=== PATIENT | male | born 1985 | race African-American/Black ===

== ENCOUNTER 2017-05-29 06:00 | Inpatient (IN) | payer OTHER ==
[~2017-05-29] VITALS: Ht 193 cm; Wt 117.9 kg
--- NOTE | ~2017-05-29 | CO ---
Unit #: [id number] #: [id number] Patient: NICOLASA MONTGOMERY [id number] [place] [address] [id number] MR#: [id number] NAME: NICOLASA MONTGOMERY ROOM: [facility] Age: 32 Sex: M Admission Date: 05/29/2017 : 1985 Attending Physician: Darnell Mccullough M.D. Primary Care Physician: Primary Care Physician No Consultation Date: 05/29/2017 CONSULTATION REPORT Medical consult was requested by Dr. Mccullough and completed on 05/29/2017. HISTORY OF PRESENT ILLNESS Nicolasa reports that about 6 days ago he started noticing itching on his entire body, initially starting on his hands and arms. He did go to an ER where they told him this is possibly rash caused by an STD and aided multiple tests; however, he does not have those results. The itching does seem to be getting worse and does seem to be spreading. He has no other complaints. PHYSICAL EXAMINATION CARDIAC: Regular rate and rhythm. No murmurs, gallops, or rubs. RESPIRATORY: Clear to auscultation bilaterally. SKIN: Red raised rash between fingers on bilateral hands extending up to forearms and abdomen. ASSESSMENT AND PLAN Scabies. We will begin Elimite cream today and leave on overnight and wash off in the morning. We will also begin Zyrtec and Zantac. Staff was recommended to take appropriate precautions regarding room assignments. Dictated by..Jian Genao/becki TD: 05/29/2017 18:05 JOB #: [id number] CONSULTATION REPORT Page 1 of 1 X MEREDITH CARL APRN CONSULTATION REPORT
--- NOTE | ~2017-05-29 | PN ---
Unit #: [id number] #: [id number] Patient: NICOLASA MONTGOMERY [id number] [facility] [address] [place] [address] [id number] MR#: [id number] NAME: NICOLASA MONTGOMERY ROOM: [facility] Age: 32 Sex: M Admission Date: 05/29/2017 : 1985 Attending Physician: Darnell Mccullough M.D. Admitting Physician: Darnell Mccullough M.D. Primary Care Physician: Primary Care Physician Britni MORAN NOTES DATE OF SERVICE 05/30/2017 DISCUSSION Nicolasa is a 32-year-old male seen on 05/30/2017. Patient interviewed, chart reviewed. Obtained information from nursing staff. Patient compliant and cooperative. Mood sad, dysphoric, flat affect, guarded. Patient was able to sleep good. No aggression or self-harm. Complete review of systems unremarkable. MENTAL STATUS EXAMINATION General appearance, patient dressed casually. Attention span and concentration fair. Oriented to place and person. Mood and affect labile. Speech monotone. Thought process concrete. Patient denied any thoughts of harming self or others or any psychotic symptom. Recent and remote memory poor. Insight and judgement poor. DIAGNOSES Major depressive disorder recurrent severe. ASSESSMENT/PLAN Advise to continue with current medication and therapeutic protocol. If needed consider further adjustment of medication. Dictated by... Marcella Grewal/nasir TD: 05/31/2017 22:01 JOB #: [id number] SABRINA MORAN NOTES Page 1 of 1 X Darnell Mccullough MD X PROGRESS NOTE
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
--- NOTE | ~2017-05-29 | HP ---
Unit #: [id number] #: [id number] Patient: NICOLASA MONTGOMERY [id number] [facility] [address] [place] [address] [id number] I MR#: [id number] NAME: NICOLASA MONTGOMERY ROOM: [facility] Age: 32 Sex: M Admission Date: 05/29/2017 : 1985 Attending Physician: Darnell Mccullough M.D. Admitting Physician: Darnell Mccullough M.D. Primary Care Physician: Primary Care Physician No HISTORY AND PHYSICAL HISTORY OF PRESENT ILLNESS Nicolasa is a 32-year-old male admitted on 05/29/2017 to [facility] for attempted suicide by overdosing on ibuprofen. PAST MEDICAL HISTORY Meningitis. PAST SURGICAL HISTORY A feeding tube when he was 5 years old. ALLERGIES Penicillin. SOCIAL HISTORY Smokes less than 1 pack of cigarettes daily. Denies alcohol use. Does report occasional marijuana use. He is currently single and living with his partner. FAMILY HISTORY Noncontributory. REVIEW OF SYSTEMS CONSTITUTIONAL: No fever or chills. HEENT: Denies any sore throat, ear pain or runny nose. CARDIOVASCULAR: Denies chest pain, irregular heart rhythm or palpitations. CHEST: Denies shortness of breath or cough. No hemoptysis. GASTROINTESTINAL: Denies nausea, vomiting, diarrhea or chronic constipation. ENDOCRINE: Denies history of increased thirst or urination. No recent significant weight loss or gain. GENITOURINARY: Denies dysuria, frequency, or hematuria. SKIN: Denies any rashes. HEMATOLOGIC: Denies history of increased bleeding or bruising. MUSCULOSKELETAL: Denies any hot, swollen joints. No generalized muscle pain. NEUROLOGIC: Denies problems with vision or speech. No frequent, severe headaches. No numbness, tingling or weakness in any extremities. Denies loss of bladder or bowel control. CURRENT MEDICATIONS None. PHYSICAL EXAMINATION Unit #: [id number] #: [id number] Patient: NICOLASA MONTGOMERY GENERAL: Alert, oriented, in no acute distress. VITAL SIGNS: Blood pressure 130/89, heart rate 90, temperature 97.8. HEIGHT: 6 feet 4. WEIGHT: 260 pounds. SKIN: Warm and dry without rash or lesion. HEENT: Normocephalic. TMs not viewed. Oral and nasal passages clear. Conjunctivae clear. PERRLA. EOMs intact. NECK: Supple without lymphadenopathy or thyromegaly. HEART: Regular rate and rhythm without murmur. LUNGS: Clear. ABDOMEN: Soft, nontender, without masses or hepatosplenomegaly. : Not done. EXTREMITIES: No evidence of cyanosis, clubbing or edema. Moves all without focal deficit. NEUROLOGICAL: Grossly within normal limits. Cranial Nerves: II: Visual decker are intact. III, IV AND : Extraocular movements are intact. Pupils are equal, round and reactive to light. V: Facial sensation is grossly normal. VII: Facial movements and expression are normal. VIII: Auditory acuity grossly intact. IX, X: Uvula is midline. Phonation is normal. XI: Patient shrugs shoulders and turns head normally. XII: Tongue protrudes in the midline. Sensory and Motor Function: Sensory and motor sensation is grossly normal. Motor: moves all extremities well. Coordination: Gait is normal. Deep Tendon Reflexes: Intact. IMPRESSION 1. Psychiatric admission. 2. History of meningitis. RECOMMENDATIONS PSYCHIATRIC: Per psychiatrist. MEDICAL: No contraindication to participate in facility's activities. MEDICAL PROGNOSIS Good. MEDICAL CONDITION Stable. Dictated by... Jian Almanza/aubree TD: 05/31/2017 16:01 JOB #: [id number] Unit #: [id number] #: [id number] Patient: ULISESNICOLASA HISTORY AND PHYSICAL Page 1 of 1 X MEREDITH CARL APRN X HISTORY AND PHYSICAL
--- NOTE | ~2017-05-29 | DS ---
Unit #: [id number] #: [id number] Patient: NICOLASA MONTGOMERY [id number] [facility] [address] [place] [address] [id number] MR#: [id number] NAME: NICOLASA MONTGOMERY ROOM: [facility] Age: 32 Sex: M Admission Date: 05/29/2017 : 1985 Discharge Date: 05/31/2017 Attending Physician: Darnell Mccullough M.D. Primary Care Physician: Primary Care Physician No DISCHARGE SUMMARY REASON FOR ADMISSION Depression. DIAGNOSTIC STUDIES LABORATORY RESULTS: Unremarkable. HOSPITAL COURSE The patient was admitted to the inpatient unit on 05/29/2017 and discharged on 05/31/2017. The patient was treated on the inpatient unit with group therapy, individual therapy, and structured milieu. The patient was responsive to treatment. Subsequently, the patient was discharged with a plan to follow up in outpatient program. DISCHARGE MEDICATIONS Celexa 20 mg daily for depression, Vistaril 25 mg t.i.d. for anxiety, and Desyrel 50 mg at bedtime for sleep. DISCHARGE DIAGNOSES Psychiatric: Major depressive disorder, recurrent, severe, F33.2. Secondary diagnosis: Deferred. Medical diagnosis: None. Stressors: Psychosocial stressors. DISCHARGE INSTRUCTIONS The patient to follow up in outpatient clinic as per social services counselor. CONDITION ON DISCHARGE The patient pleasant and cooperative. Denied any psychotic symptom or any suicidal ideation. PROGNOSIS Guarded. DIET AND ACTIVITY As tolerated. Dictated by... Darnell Mccullough M.D. Unit #: [id number] #: [id number] Patient: NICOLASA MONTGOMERY SZC/modl TD: 05/31/2017 20:47 JOB #: [id number] DISCHARGE SUMMARY Page 1 of 1 X Darnell Mccullough MD X DISCHARGE SUMMARY
== END 2017-05-31 11:45 | disposition home or self-care (01) | DRG 885 ==
LOC: P2L 08:24
DX: F33.2 Major depressive disorder, recurrent severe without psychotic features (principal); B86 Scabies; Z88.0 Allergy status to penicillin